=== PATIENT | male | born 1955 | race African-American/Black ===

== ENCOUNTER 2018-03-26 10:36 | Emergency (ER) | payer MEDICAID ==
[~2018-03-26] VITALS: Ht 177.8 cm; Wt 85.0 kg
[2018-03-26] MEDS ORDERED: LIDOCAINE HCL/PF 1% 10 MG/ML 5ML VIAL IJ ONE ×2 (13:45→14:30)
[2018-03-26] MEDS ORDERED: TETANUS, DIPHTHERIA, PERTUSSIS VAC/PF 0.5ML (>7YR OLD) IM ONE (13:45)
[2018-03-26] MEDS ORDERED: HYDROCODONE/ACETAMINOPHEN 5/325MG TABLET PO ONE (13:45)
[2018-03-26 14:08] VITALS: BP 139/94
== END 2018-03-26 15:36 | disposition home or self-care (01) ==
LOC: ER 11:52
DX: J86.9 Pyothorax without fistula (principal); I10 Essential (primary) hypertension; M19.90 Unspecified osteoarthritis, unspecified site; F12.10 Cannabis abuse, uncomplicated; Z88.8 Allergy status to other drugs, medicaments and biological substances
CPT/HCPCS: 10060; 90471; 90715; 99283; J3490; Z7610